=== PATIENT | female | born 1980 | race African-American/Black ===

== ENCOUNTER 2016-05-12 17:58 | Emergency (ER) | payer MEDICARE ==
[2009-12-02 06:12] VITALS: BMI 40.0
== END 2016-05-12 19:55 | disposition home or self-care (01) ==
LOC: D.ER 17:58
DX: K08.89 Other specified disorders of teeth and supporting structures (principal); K05.10 Chronic gingivitis, plaque induced; F31.9 Bipolar disorder, unspecified; M51.36 Other intervertebral disc degeneration, lumbar region

== ENCOUNTER 2016-07-15 11:57 | Emergency (ER) | payer MEDICARE ==
[2009-12-02 06:12] VITALS: BMI 40.0
[2016-07-15 12:40] LABS: APPEARANCE CLEAR (CLEAR); BACTERIA FEW /hpf (NONE SEEN); BILIRUBIN NEGATIVE (NEGATIVE); COLOR YELLOW (YELLOW); EPITHELIAL CELLS OCC /hpf (0-5); GLUCOSE NEGATIVE (NEGATIVE); KETONE NEGATIVE (NEGATIVE); LEUKOCYTE ESTERASE TRACE (NEGATIVE); NITRITE NEGATIVE (NEGATIVE); PROTEIN NEGATIVE (NEGATIVE); UDS - AMPHET POSITIVERT QUAL (NEGATIVE); UDS - BARB NEGATIVE QUAL (NEGATIVE); UDS - BENZO NEGATIVE QUAL (NEGATIVE); UDS - COCAINE NEGATIVE QUAL (NEGATIVE); UDS - METH NEGATIVE QUAL (NEGATIVE); UDS - OPIATE NEGATIVE QUAL (NEGATIVE); UDS - PCP NEGATIVE QUAL (NEGATIVE); UDS - THC NEGATIVE QUAL (NEGATIVE); UROBILINOGEN NORMAL (NORMAL); WHITE CELLS - URINE 0-5 /hpf (0-5)
[2016-07-15 12:42] LABS: BASOPHILS 0.6 % (0-2); EOSINOPHILS 3.1 % (0-7); HEMATOCRIT 36.5 % (36.0-48.0); HEMOGLOBIN 10.6 g/dL (12-16); IMMATURE GRANULOCYTES 0.1 % (0-5); LYMPHOCYTES 19.7 % (15-50); MCH 20.9 pg (26.0-34.0); MEAN PLATELET VOLUME 9.7 fL (7.4-10.4); MONOCYTES 4.8 % (2-11); NEUTROPHILS 71.7 % (40-80); RBC 5.07 10x6/uL (4.00-5.40); RDW 17.1 % (11.5-14.5); WBC 7.2 10x3/uL (4.8-10.8)
[2016-07-15 12:45] LABS: PLATELET COUNT 342 10x3/uL (130-400)
[2016-07-15 13:08] LABS: ALBUMIN 3.3 g/dL (3.4-5.0); ANION GAP 10.6 mmol/L (8-16); BILIRUBIN - TOTAL 0.24 mg/dL (0.2-1.3); CALCIUM 9.5 mg/dL (8.5-10.1); CARBON DIOXIDE 28.8 mmol/L (21.0-32.0); POTASSIUM - SERUM 3.4 mmol/L (3.5-5.1); PROTEIN - SERUM 7.1 g/dL (6.4-8.2)
[2016-07-15 14:46] LABS: HCG URINE NEGATIVE (NEGATIVE)
== END 2016-07-15 23:30 | disposition home or self-care (01) ==
LOC: D.ER 11:57
PROVIDERS: Emergency Medicine
DX: F33.9 Major depressive disorder, recurrent, unspecified (principal); F15.10 Other stimulant abuse, uncomplicated; R45.851 Suicidal ideations; M51.36 Other intervertebral disc degeneration, lumbar region

== ENCOUNTER 2016-08-11 17:20 | Emergency (ER) | payer MEDICARE ==
[2009-12-02 06:12] VITALS: BMI 40.0
[2016-08-11 18:26] LABS: BASOPHILS 0.6 % (0-2); EOSINOPHILS 3.9 % (0-7); HEMATOCRIT 32.2 % (36.0-48.0); HEMOGLOBIN 9.4 g/dL (12-16); IMMATURE GRANULOCYTES 0.1 % (0-5); LYMPHOCYTES 22.4 % (15-50); MCH 20.6 pg (26.0-34.0); MCHC 29.2 g/dL (31.0-37.0); MCV 70.6 fL (80.0-100.0); MEAN PLATELET VOLUME 9.5 fL (7.4-10.4); MONOCYTES 3.8 % (2-11); NEUTROPHILS 69.2 % (40-80); RBC 4.56 10x6/uL (4.00-5.40); RDW 17.1 % (11.5-14.5); WBC 8.5 10x3/uL (4.8-10.8)
[2016-08-11 18:27] LABS: PLATELET COUNT 248 10x3/uL (130-400)
[2016-08-11 18:47] LABS: ANION GAP 10.4 mmol/L (8-16); CALCIUM 8.6 mg/dL (8.5-10.1); POTASSIUM - SERUM 3.4 mmol/L (3.5-5.1)
== END 2016-08-11 19:15 | disposition home or self-care (01) ==
LOC: D.ER 17:20
PROVIDERS: Nurse Practitioner Acute Care
DX: R60.1 Generalized edema (principal); S92.512A Displaced fracture of proximal phalanx of left lesser toe(s), initial encounter for closed fracture; X58.XXXA Exposure to other specified factors, initial encounter; Y93.89 Activity, other specified; Y92.89 Other specified places as the place of occurrence of the external cause

== ENCOUNTER 2017-08-28 04:32 | Emergency (ER) | payer MEDICARE ==
[~2017-08-28] VITALS: Ht 165.1 cm; Wt 100.0 kg
[2017-08-28 04:38] VITALS: Ht 165.1 cm; Wt 100.0 kg
[2017-08-28] MEDS ORDERED: NAPROSYN500 MG PO (06:41)
[2017-08-28 06:53] VITALS: BP 121/71
== END 2017-08-28 06:54 | disposition home or self-care (01) ==
LOC: D.ER 04:32
DX: S29.012A Strain of muscle and tendon of back wall of thorax, initial encounter (principal); Y04.2XXA Assault by strike against or bumped into by another person, initial encounter; Y93.89 Activity, other specified; Y92.019 Unspecified place in single-family (private) house as the place of occurrence of the external cause; S00.83XA Contusion of other part of head, initial encounter; S20.219A Contusion of unspecified front wall of thorax, initial encounter; G35 Multiple sclerosis

== ENCOUNTER 2018-01-07 23:52 | Emergency (ER) | payer MEDICARE ==
[~2018-01-07] VITALS: Ht 165.1 cm; Wt 90.9 kg
[~2018-01-07 23:52] MED LIST: NAPROSYN500 MG PO
[2018-01-07 23:57] VITALS: Ht 165.1 cm; Wt 90.9 kg
[2018-01-07] MEDS ORDERED: XANAX2 MG PO (23:58)
[2018-01-07] MEDS ORDERED: LATUDA40 MG PO (23:58)
[2018-01-08] MEDS ORDERED: LATUDA40 MG PO (00:25)
[2018-01-08] MEDS ORDERED: KLONOPIN0.5 MG PO (00:25)
[2018-01-08 00:42] VITALS: BP 142/71
== END 2018-01-08 00:42 | disposition home or self-care (01) ==
LOC: D.ER 23:52
DX: F31.9 Bipolar disorder, unspecified (principal)

== ENCOUNTER 2018-04-13 14:47 | Emergency (ER) | payer MEDICARE ==
[~2018-04-13] VITALS: Ht 165.1 cm; Wt 104.1 kg
[~2018-04-13 14:47] MED LIST changes: +KLONOPIN0.5 MG PO; +LATUDA40 MG PO; +XANAX2 MG PO
[2018-04-13 14:52] VITALS: Ht 165.1 cm; Wt 104.1 kg
[2018-04-13 15:53] LABS: APPEARANCE CLEAR (CLEAR); BILIRUBIN NEGATIVE (NEGATIVE); COLOR YELLOW (YELLOW); EPITHELIAL CELLS 0-5 /hpf (0-5); GLUCOSE NEGATIVE (NEGATIVE); KETONE NEGATIVE (NEGATIVE); NITRITE NEGATIVE (NEGATIVE); PROTEIN TRACE mg/dL (NEGATIVE); RED CELLS - URINE 0-5 /hpf (0-5); SPECIFIC GRAVITY 1.025 (1.005-1.020); UROBILINOGEN NORMAL (NORMAL); WHITE CELLS - URINE NSEEN /hpf (0-5)
[2018-04-13 16:01] LABS: BASOPHILS 0.5 % (0-2); EOSINOPHILS 2.3 % (0-7); HEMATOCRIT 28.6 % (36.0-48.0); HEMOGLOBIN 8.1 g/dL (12-16); IMMATURE GRANULOCYTES 0.3 % (0-5); MCH 17.3 pg (26.0-34.0); MCHC 28.3 g/dL (31.0-37.0); MCV 61.2 fL (80.0-100.0); MEAN PLATELET VOLUME 9.6 fL (7.4-10.4); MONOCYTES 5.7 % (2-11); NEUTROPHILS 71.2 % (40-80); PLATELET COUNT 363 10x3/uL (130-400); RBC 4.67 10x6/uL (4.00-5.40); RDW 20.2 % (11.5-14.5); WBC 9.9 10x3/uL (4.8-10.8)
[2018-04-13 16:05] LABS: UDS - AMPHET POSITIVE QUAL (NEGATIVE); UDS - BARB NEGATIVE QUAL (NEGATIVE); UDS - BENZO NEGATIVE QUAL (NEGATIVE); UDS - COCAINE NEGATIVE QUAL (NEGATIVE); UDS - OPIATE NEGATIVE QUAL (NEGATIVE); UDS - PCP NEGATIVE QUAL (NEGATIVE); UDS - THC NEGATIVE QUAL (NEGATIVE)
[2018-04-13 16:12] LABS: HCG SERUM NEGATIVE (NEGATIVE)
[2018-04-13 16:33] LABS: ALBUMIN 3.5 g/dL (3.4-5.0); ANION GAP 15.6 mmol/L (8-16); BILIRUBIN - TOTAL 0.48 mg/dL (0.2-1.3); CALCIUM 8.9 mg/dL (8.5-10.1); CARBON DIOXIDE 25.1 mmol/L (21.0-32.0); POTASSIUM - SERUM 3.7 mmol/L (3.5-5.1); PROTEIN - SERUM 7.9 g/dL (6.4-8.2)
[2018-04-13 16:43] LABS: THYROID STIMULATING HORMONE 1.92 uIU/mL (0.36-3.74)
[2018-04-13 22:26] VITALS: BP 138/89
== END 2018-04-14 01:56 ==
LOC: D.ER 14:47
PROVIDERS: Family Medicine
DX: R45.851 Suicidal ideations (principal); R45.850 Homicidal ideations; D50.9 Iron deficiency anemia, unspecified; D57.3 Sickle-cell trait; F41.9 Anxiety disorder, unspecified; F32.9 Major depressive disorder, single episode, unspecified; F43.9 Reaction to severe stress, unspecified

== ENCOUNTER 2019-05-08 05:40 | Day surgery (SDC) | payer MEDICARE ==
[~2019-05-08] VITALS: Ht 165.1 cm; Wt 116.1 kg
[~2019-05-08 05:40] MED LIST changes: +ABILIFY10 MG PO; +KLONOPIN1 MG PO; +MINIPRESS2 MG PO
[2019-05-08 06:01] LABS: HEMATOCRIT 32.5 % (36.0-48.0); HEMOGLOBIN 9.5 g/dL (12-16); MCH 19.7 pg (26.0-34.0); MCHC 29.2 g/dL (31.0-37.0); MCV 67.4 fL (80.0-100.0); MEAN PLATELET VOLUME 9.2 fL (7.4-10.4); RBC 4.82 10x6/uL (4.00-5.40); RDW 18.8 % (11.5-14.5); WBC 8.1 10x3/uL (4.8-10.8)
[2019-05-08 06:26] VITALS: Ht 165.1 cm; Wt 116.1 kg
--- NOTE | 2019-05-08 06:54 | NUR ---
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 MH CONTACTED FOR EVALUATION.
--- NOTE | 2019-05-08 09:59 | NUR ---
0953-REC'D FROM RR. AWAKE AND ALERT. VSS. DENIES PAIN. IV PATENT AT K[facility]. RR NURSE REPORTS PT URINATED APPROXIMATELY 250CC URINE IN BEDPAN PRIOR TO OPS TRANSFER. REVIEWED DISCHARGE CRITERIA. VERBALIZED UNDERSTANDING.
--- NOTE | 2019-05-08 10:03 | NUR ---
1000-ASSISTED PT TO RESTROOM. ABLE TO AMBULATE WITH SLOW STEADY GAIT. URINATED WITHOUT COMPLICATIONS. FULL LIQUID TRAY AT BEDSIDE. NO DISTRESS. PLEASANT WITHOUT COMPLAINTS.
--- NOTE | 2019-05-08 10:27 | NUR ---
1025-TOLERATED TRAY. DENIES PAIN. NO DISTRESS. VSS. URINATED FOR 2ND TIME IN OPS WITHOUT COMPLICATIONS. REMOVED IV WITH CATH INTACT, DISPOSED INTO SHARPS.COVERED SITE WITH GUAZE,SECURED WITH MEDIPORE TAPE.
--- NOTE | 2019-05-08 10:44 | NUR ---
ACCORDING TO THE SUICIDE ASSESSMENT THE PATIENT RATES LOW. AT THIS TIME SHE DOES NOT NEED A 1:1 OBSERVATION. SUICIDE RESOURCE FLYER PROVIDED.
--- NOTE | 2019-05-08 10:59 | NUR ---
1050-DISCHARGE CRITERIA MET. REVIEWED POST OPERATIVE INSTRUCTIONS AND FOLLOW UP APPOINTMENT. VERBALIZED UNDERSTANDING. PT HAS SPOKEN WITH [facility].
--- NOTE | 2019-05-08 11:00 | NUR ---
1055-ESCORTED OUT VIA W/C BY VOLUNTEER WITH TAXI TO DRIVE PT HOME.
--- NOTE | 2019-05-08 11:41 | OP ---
PATIENT NAME: JESSICA GILBERT MEDICAL RECORD: [id number] :80 LOCATION:D.OPS ADMISSION DATE: SURGEON: JACOBO MERRILL MD DATE OF OPERATION: 05/08/2019 SURGEON: Jacobo Merrill MD ANESTHESIA: TIVA by Shelly Stokes CRNA. DIAGNOSES: Interstitial cystitis, urge urinary incontinence. PROCEDURES: Cystoscopy and hydrodistention of the bladder. Intravesical Botox injection and intravesical Rimso instillation. FINDINGS: Single ureteral orifices bilaterally. No bladder tumors. Diffusely inflamed bladder. BLOOD LOSS: None. CLINICAL HISTORY: This is a 38-year-old female with severe urge urinary incontinence, which has not responded to oral medications. She also has vaginal and pelvic pains, which are suggestive of interstitial cystitis. She comes today to have cystoscopy and intravesical Botox injection. If I find bladder inflammation, she will also be treated for interstitial cystitis with hydrodistention and intravesical Rimso instillation. PROCEDURE IN DETAIL: She was given her perioperative antibiotics. A 17-Irish cystoscope with 30-degree lens was used for visualization. Diffuse inflammation of the bladder was found. Her bladder was hydrodistended to about 600 mL. While it was hydrodistended, we injected at 10 different locations 1 mL of Botox solution. Each mL of Botox solution has 10 units of Botox dissolved in it. This gives a total of 100 units of Botox injected into the bladder. We avoided the trigone and the ureteral orifices. The bladder was then emptied through the cystoscope sheath and the scope was removed. A red rubber catheter was used to instill 50 mL of Rimso solution into the bladder. Once the solution was in the bladder, the catheter was removed, leaving the solution in the bladder. The patient will void this solution out in 15 minutes. I will see her in followup in 2 weeks' time to check on her symptoms. TRANSINT:[id number] Voice Confirmation ID: [id number] DOCUMENT ID: [id number] JACOBO MERRILL MD at 1141 CC: [id number] DICTATION DATE: 05/08/19 1045 MACHINE ROUGH ROUNDER: 05/08/19 1135 [facility] 05/08/19 [place] [address]
== END 2019-05-08 10:55 | disposition home or self-care (01) ==
LOC: D.OPS 05:40 → D.PAN 10:30 → D.OPS 10:55
PROVIDERS: Anesthesiology; ATTEND Urology
DX: N30.11 Interstitial cystitis (chronic) with hematuria (principal); N39.41 Urge incontinence